=== PATIENT | female | born 1940 | race Caucasian/White ===

== ENCOUNTER → 2020-12-22 | Outpatient (CLI) | payer MEDICARE, BC ==
--- NOTE | 2020-12-22 16:16 | US ---
EXAMINATION TYPE: US carotid duplex BILAT DATE OF EXAM: 12/22/2020 COMPARISON: NONE CLINICAL HISTORY: I70.0 Atherosclerosis of aorta,R55 Syncope. hx stroke. pre op. EXAM MEASUREMENTS: RIGHT: Peak Systolic Velocity (PSV) cm/sec ----- Right CCA: 76.1 ----- Right ICA: 76.1 ----- Right ECA: 66.1 ICA/CCA ratio: 1.0 RIGHT: End Diastole cm/sec ----- Right CCA: 15.6 ----- Right ICA: 14.3 ----- Right ECA: 0 LEFT: Peak Systolic Velocity (PSV) cm/sec ----- Left CCA: 88.4 ----- Left ICA: 105.0 ----- Left ECA: 78.8 ICA/CCA ratio: 1.2 LEFT: End Diastole cm/sec ----- Left CCA: 15.4 ----- Left ICA: 24.5 ----- Left ECA: 2.7 VERTEBRALS (direction of flow): Right Vertebral: Antegrade Left Vertebral: Antegrade Rhythm: Arrhythmia No elevated velocities. No significant stenosis. Small amount of plaque seen in right bulb and pro ximal right CCA. Grayscale, color Doppler, spectral Doppler imaging performed of the carotid arteries. Waveform analys is does not show significant stenosis of the internal carotid arteries. IMPRESSION: No hemodynamic significant stenosis of the proximal internal carotid arteries by Doppler criteria, an indirect measurement of carotid stenosis Criteria for Assigning % of Stenosis / Diameter reduction (Estimation based on the indirect measurements of the internal carotid artery velocities (ICA PSV). 1. Normal (no stenosis)=ICA PSV < 125 cm/s: ratio < 2.0: ICA EDV<40 cm/s. 2. Less than 50% stenosis=ICA PSV < 125 cm/s: ratio < 2.0: ICA EDV<40 cm/s. 3. 50 to 69% stenosis=ICA PSV of 125 to 230 cm/s: ration 2.0 ? 4.0: ICA EDV 40-100 cm/s. 4. Greater than 70% stenosis to near occlusion= ICA PSV > 230 cm/s: ratio > 4.0: ICA EDV > 100 cm/s. 5. Near occlusion= ICA PSV velocities may be low or undetectable: variable ratio and ICA EDV. 6. Total occlusion=unable to detect flow.
--- NOTE | 2020-12-22 18:16 | CT ---
EXAMINATION TYPE: CT chest wo con DATE OF EXAM: 12/22/2020 COMPARISON: None HISTORY: atherosclerosis of aorta CT DLP: 256 mGycm, Automated exposure control for dose reduction was used. CONTRAST: Performed injected with 0 mL of Isovue 300. TECHNIQUE: Axial images were obtained at 5 mm thick sections. Reconstructed images are reviewed on Perk computer in the coronal plane. FINDINGS: Portion of the thyroid visualized is normal. There is a 0.3 cm nodule within the periphery of the left upper lobe. Series 4 image 21. This may be calcified. Monitoring is recommended. Minimal bilateral pleural effusions are present. There are scattered small superior mediastinal lymph nodes. A few scattered present tracheal lymph n odes are evident. There is calcification of the tracheobronchial tree. Calcifications within coronary vessels. The ascending aorta diameter at the level of the main pulmonary artery is 3.1 cm. The main pulmonary artery diameter at the bifurcation is 3.[address] sections are obtained through the upper abdomen. Abdomen is essentially unremarkable. IMPRESSIONS: 1. Minimal bilateral pleural effusions. 2. 0.4 cm nodule periphery left upper lobe. Follow-up exam in 6 months to confirm stability is recomm ended.
== END | disposition home or self-care (01) ==
LOC: RADCTMAIN 11:58
PROVIDERS: ATTEND Thoracic Surgery (Cardiothoracic Vascular Surgery)
DX: J90 Pleural effusion, not elsewhere classified (principal); R91.1 Solitary pulmonary nodule; I70.0 Atherosclerosis of aorta; R55 Syncope and collapse
CPT/HCPCS: 71250; 93880

== ENCOUNTER → 2021-01-02 | Outpatient (CLI) | payer MEDICARE, BC ==
[2021-01-02 10:37] LABS: INR 1.1 (<1.2)
[2021-01-02 10:51] LABS: Amorphous Sediment,Urine Rare /hpf; Appearance,Urine Clear (Clear); Bilirubin,Urine Negative (Negative); Blood,Urine Negative (Negative); Color,Urine Yellow; Glucose,Urine (UA) 4+ (Negative); Hyaline Casts,Urine 4 /lpf (0-2); Ketones,Urine Negative (Negative); Leukocyte Esterase,Urine Moderate (Negative); Mucus,Urine Rare /hpf; Nitrite,Urine Negative (Negative); Protein,Urine Trace (Negative); RBC,Urine 1 /hpf (0-5); Specific Gravity,Urine 1.018 (1.001-1.035); Squamous Epithelial Cell,Urine 1 /hpf (0-4); Urobilinogen,Urine <2.0 mg/dL (<2.0); WBC,Urine 21 /hpf (0-5)
[2021-01-02 10:59] LABS: Anisocytosis Slight; HCT 32.7 % (34.0-46.0); Hypochromasia Marked; MCH 22.8 pg (25.0-35.0); MCHC 30.6 g/dL (31.0-37.0); MCV 74.6 fL (80.0-100.0); Mean Platelet Volume 7.8; Microcytosis Moderate; Platelet Count 370 k/uL (150-450); Poikilocytosis Slight; RBC 4.39 m/uL (3.80-5.40); RDW 18.4 % (11.5-15.5); WBC 10.9 k/uL (3.8-10.6)
[2021-01-02 11:05] LABS: Albumin 4.4 g/dL (3.5-5.0); Calcium 9.4 mg/dL (8.4-10.2); Magnesium 1.1 mg/dL (1.6-2.3); Potassium 4.6 mmol/L (3.5-5.1); Total Bilirubin 0.8 mg/dL (0.2-1.3); Total Protein 6.9 g/dL (6.3-8.2)
[2021-01-02 18:05] LABS: Hepatitis A Antibody IgM Non-Reactive (Non-Reactive); Hepatitis B Core IgM Non-Reactive (Non-Reactive); Hepatitis B Surface Antigen Non-Reactive (Non-Reactive); Hepatitis C IgG Antibody Non-Reactive (Non-Reactive)
--- NOTE | 2021-01-03 08:53 | P.VSCSTY ---
Greater Saphenous Vein Mapping This is bilateral lower extremity greater saphenous vein mapping. Date of service: 01/02/2021 Vein quality and ultrasound appearance: We see no intraluminal thrombus or wall changes. Below mid thigh on the left appears small for use as conduit as well as some areas on the right at the knee and below.. Vein size groin right : 5.0 x 4.1 groin left: 6.1 x 5.5 High thigh right: 3.2 x 2.4 high thigh left: 3.9 x 3.8 Mid thigh right: 3.2 x 2.4 mid thigh left: 2.3 x 3.9 Above-knee right: 3.2 x 3.1 above-knee left: 1.8 x 1.7 Below knee right: 3.0 x 2.0 below-knee left: 2.4 x 1.6 Mid calf right: 2.0 x 2.0 mid calf left: 1.8 x 1.4 Ankle right: 2.5 x 1.7 ankle left: 1.8 x 1.2 Impression: Areas of usable saphenous vein. Most of right leg as well as mid thigh and above on the left.
--- NOTE | 2021-01-03 08:54 | P.ARTDOP ---
Arterial Doppler LOWER EXTREMITY ARTERIAL DOPPLER: DATE OF SERVICE: 01/02/2021 Reason for study: Preop CABG. Doppler waveforms: Multiphasic bilaterally throughout. Pulse volume recording: []. Pressure gradients: None. Ankle-brachial indices: Greater than 1 bilaterally. Toe brachial indices: Greater than 1 bilaterally Impression: Normal study.
== END | disposition home or self-care (01) ==
LOC: LABPAT 08:39
PROVIDERS: ATTEND Thoracic Surgery (Cardiothoracic Vascular Surgery)
DX: Z01.810 Encounter for preprocedural cardiovascular examination (principal); I34.2 Nonrheumatic mitral (valve) stenosis; I36.1 Nonrheumatic tricuspid (valve) insufficiency; I25.10 Atherosclerotic heart disease of native coronary artery without angina pectoris; E11.9 Type 2 diabetes mellitus without complications; Z79.01 Long term (current) use of anticoagulants; Z79.899 Other long term (current) drug therapy
CPT/HCPCS: 36415; 80053; 80061; 80074; 81001; 83036; 83735; 84443; 85027; 85610; 85730; 86850; 86900; 86901; 86920; 87070; 87086; 93005; 93922; 93970

== ENCOUNTER → 2021-01-08 | Outpatient (CLI) | payer MEDICARE, BC ==
[2021-01-02 11:03] VITALS: BMI 20.5
[~2021-01-08] MED LIST: ALBUMIN HUMAN 25% 50 ML IV ONE; ALBUMIN HUMAN 5% 500 ML IVPB ONE; ASPIRIN 325 MG TAB PO ONE; ATORVASTATIN 10 MG TAB PO ONE; CALCIUM CHLORIDE 100 MG/ML 10 ML SYRINGE IV ONE; CHLORHEXIDINE GLUCONATE 15 ML CUP MUCOUS MEM ONE; CLEVIDIPINE BUTYRATE 25 MG in EMPTY BAG 1 BAG IV ONE; DEXTROSE 5% IN WATER 1,000 ML with POTASSIUM CHLORIDE 110 MEQ, MAGNESIUM SULFATE 16 MEQ... IV ONE; DEXTROSE 5% IN WATER 1,000 ML with POTASSIUM CHLORIDE 25 MEQ, SODIUM CHLORIDE 4MEQ/ML V... IRRIGATION ONE; HEPARIN SODIUM 1,000 UN/ML (10ML VL) IV ONE; HEPARIN SODIUM,PORCINE 5,000 UNIT in SODIUM CHLORIDE 0.9% 500 ML 500 ML IV ONE; INSULIN ASPART (NovoLOG) 100 UNIT/ML VIAL SQ ONE; INSULIN REGULAR 100 UNIT in SODIUM CHLORIDE 0.9% 100 ML IV ONE; LACTATED RINGERS 1,000 ML IV ONE; LACTATED RINGERS 1,000 ML IV SCH; LIDOCAINE 1% (10MG/ML) FOR IV START INTRADERMA PRN; MAGNESIUM SULFATE MG 500 MG/ML IV ONE; MAGNESIUM SULFATE-D5W PMX 1 GM in DEXTROSE/WATER 1 100ML.BAG IVPB SCH; MANNITOL 25% 12.5 GM/50 ML VIAL IV ONE; METOPROLOL TARTRATE 12.5 MG TAB PO ONE; MUPIROCIN 2% OINT 22 GM TUBE NASAL ONE; NITROGLYCERIN SL TABS 0.4 MG TAB SUBLINGUAL ONE; NITROGLYCERIN-D5W PMX 25 MG/250 ML BTL IV ONE; NITROGLYCERIN-D5W PMX 50 MG in DEXTROSE/WATER 1 250ML.BAG IV ONE; NOREPINEPHRINE 4 MG in SODIUM CHLORIDE 0.9% 250 ML IV ONE; PAPAVERINE 360 MG in SODIUM CHLORIDE 0.9% 90 ML IV ONE; PHENYLEPHRINE 10 MG/ML VIAL IV ONE; PHENYLEPHRINE 40 MG in SODIUM CHLORIDE 0.9% 250 ML IV ONE; PROTAMINE SULFATE 10 MG/ML 25 ML VIAL IV ONE; PROTAMINE SULFATE 250 MG in EMPTY BAG 1 BAG IV ONE; SODIUM BICARB 8.4% 50 ML SYR (1 MEQ/ML) IV ONE; SODIUM CHLORIDE 0.9% 1,000 ML IV ONE; TRANEXAMIC ACID 2,000 MG in SODIUM CHLORIDE 0.9% 80 ML IV ONE; ceFAZolin 1,000 MG in SODIUM CHLORIDE 0.9% IRRIGATIO 1,000 ML IRRIGATION ONE; propofoL 1,000 MG/100 ML VIAL IV ONE
[2021-01-08 06:26] VITALS: BP 141/76; PULSE 83; RESP 16; TEMP 97.6
[2021-01-08 06:51] LABS: Glucose,Whole Blood 203 mg/dL (75-99)
[2021-01-08 07:20] LABS: Anisocytosis Slight; HCT 30.5 % (34.0-46.0); HGB 9.9 gm/dL (11.4-16.0); Hypochromasia Marked; MCH 23.1 pg (25.0-35.0); MCHC 32.4 g/dL (31.0-37.0); MCV 71.3 fL (80.0-100.0); Mean Platelet Volume 8.1; Microcytosis Marked; Platelet Count 307 k/uL (150-450); Poikilocytosis Slight; RBC 4.28 m/uL (3.80-5.40); RDW 18.4 % (11.5-15.5); WBC 9.7 k/uL (3.8-10.6)
[2021-01-08 07:33] LABS: Albumin 4.1 g/dL (3.5-5.0); Calcium 9.5 mg/dL (8.4-10.2); Magnesium 1.5 mg/dL (1.6-2.3); Potassium 4.3 mmol/L (3.5-5.1); Total Bilirubin 0.6 mg/dL (0.2-1.3); Total Protein 6.7 g/dL (6.3-8.2)
== END | disposition home or self-care (01) ==
LOC: 2ORMAIN 05:37 → OR 05:37 → UNDOADMIN 05:37 → EDSTATUS 08:00
PROVIDERS: ATTEND Thoracic Surgery (Cardiothoracic Vascular Surgery)
DX: I34.2 Nonrheumatic mitral (valve) stenosis (principal); I36.1 Nonrheumatic tricuspid (valve) insufficiency; I25.10 Atherosclerotic heart disease of native coronary artery without angina pectoris; Z53.09 Procedure and treatment not carried out because of other contraindication
CPT/HCPCS: 80053; 83735; 85027; 86850; 86900; 86901; 86920

== ENCOUNTER → 2021-01-22 | Outpatient (CLI) | payer MEDICARE, BC ==
[2021-01-22 09:45] LABS: Anisocytosis Slight; HCT 37.6 % (34.0-46.0); HGB 11.8 gm/dL (11.4-16.0); Hypochromasia Marked; MCH 24.2 pg (25.0-35.0); MCHC 31.4 g/dL (31.0-37.0); Mean Platelet Volume 7.1; Microcytosis Moderate; Platelet Count 298 k/uL (150-450); Poikilocytosis Slight; RBC 4.89 m/uL (3.80-5.40); RDW 19.8 % (11.5-15.5); WBC 9.5 k/uL (3.8-10.6)
[2021-01-22 09:56] LABS: Albumin 4.1 g/dL (3.5-5.0); Calcium 9.9 mg/dL (8.4-10.2); Magnesium 1.3 mg/dL (1.6-2.3); Potassium 4.8 mmol/L (3.5-5.1); Total Bilirubin 0.7 mg/dL (0.2-1.3); Total Protein 6.7 g/dL (6.3-8.2)
[2021-01-22 09:57] LABS: INR 1.1 (<1.2); Partial Thromboplastin Time 22.3 sec (22.0-30.0); Prothrombin Time 11.2 sec (9.0-12.0)
== END | disposition home or self-care (01) ==
LOC: LABWHC1 09:07
PROVIDERS: ATTEND Thoracic Surgery (Cardiothoracic Vascular Surgery)
DX: I25.10 Atherosclerotic heart disease of native coronary artery without angina pectoris (principal); I34.0 Nonrheumatic mitral (valve) insufficiency; R55 Syncope and collapse
CPT/HCPCS: 80053; 83735; 85027; 85610; 85730

== ENCOUNTER 2021-01-24 06:10 | Inpatient (IN) | payer MEDICARE, BC ==
[2021-01-19 12:58] VITALS: BMI 21.0
[~2021-01-24 06:10] MED LIST changes: -INSULIN ASPART (NovoLOG) 100 UNIT/ML VIAL SQ ONE; -LACTATED RINGERS 1,000 ML IV SCH; -LIDOCAINE 1% (10MG/ML) FOR IV START INTRADERMA PRN; -MAGNESIUM SULFATE-D5W PMX 1 GM in DEXTROSE/WATER 1 100ML.BAG IVPB SCH; -MUPIROCIN 2% OINT 22 GM TUBE NASAL ONE
[2021-01-24 06:40] LABS: Glucose,Whole Blood 147 mg/dL (75-99)
[2021-01-24 07:01] VITALS: BP 163/79; TEMP 99
[2021-01-24] MEDS ORDERED: LIDOCAINE 1% (10MG/ML) FOR IV START INTRADERMA ONE (07:03)
[2021-01-24 07:11] LABS: Magnesium 1.5 mg/dL (1.6-2.3)
[2021-01-24] MEDS ORDERED: MAGNESIUM SULFATE-D5W PMX 1 GM in DEXTROSE/WATER 1 100ML.BAG IVPB SCH (08:00)
[2021-01-24] MEDS ORDERED: TRANEXAMIC ACID 1,000 MG/10 ML VIAL ONE (08:52)
[2021-01-24] MEDS ORDERED: ELECTROLYTE-R (PH 7.4) 1,000 ML IV.SOLN IV ONE (08:52)
[2021-01-24] MEDS ORDERED: fentaNYL (PF) 50 MCG/ML 50 ML VIAL ONE (08:52)
[2021-01-24] MEDS ORDERED: INSULIN REGULAR 100 UNIT/ML VIAL ONE (08:52)
[2021-01-24] MEDS ORDERED: CALCIUM CHLORIDE 100 MG/ML 10 ML SYRINGE ONE (08:52)
[2021-01-24] MEDS ORDERED: SODIUM CHLORIDE 0.9% IRRIG 1,000 ML BTL IRRIGATION ONE (08:52)
[2021-01-24] MEDS ORDERED: MAGNESIUM SULFATE 4 MEQ/ML 10ML VIAL ONE (08:52)
[2021-01-24] MEDS ORDERED: SODIUM BICARB 8.4% 50 ML SYR (1 MEQ/ML) ONE (08:52)
[2021-01-24] MEDS ORDERED: PROTAMINE SULFATE 10 MG/ML 25 ML VIAL IV ONE (08:52)
[2021-01-24] MEDS ORDERED: SODIUM CHLORIDE 0.9% 250 ML BAG ONE (08:52)
[2021-01-24] MEDS ORDERED: LIDOCAINE 2% SYG (PF) 100 MG/5 ML ONE (08:52)
[2021-01-24] MEDS ORDERED: MIDAZOLAM 2 MG/2 ML VIAL ONE (08:52)
[2021-01-24] MEDS ORDERED: VECURONIUM 10 MG VIAL IV ONE (08:52)
[2021-01-24] MEDS ORDERED: PROPOFOL 10 MG/ML 20 ML VIAL IV ONE (08:52)
[2021-01-24] MEDS ORDERED: fentaNYL (PF) 50 MCG/ML 2 ML AMP ONE (08:52)
[2021-01-24 09:27] LABS: ABG Base Excess -0.2 mmol/L; ABG Glucose Whole Blood 242 mg/dL (75-99); ABG HCO3 25 mmol/L (21-25); ABG Hematocrit 31 % (34.0-46.0); ABG Ionized Calcium 4.7 mg/dL (4.5-5.3); ABG PCO2 41 mmHg (35-45); ABG PH 7.39 (7.35-7.45); ABG PO2 322 mmHg (83-108); ABG Sodium Whole Blood 137 mmol/L (135-146); ABG TCO2 26 mmol/L (19-24)
[2021-01-24 09:42] LABS: Digoxin 0.7 ng/mL
[2021-01-24 10:06] LABS: ABG Base Excess -1.4 mmol/L; ABG Glucose Whole Blood 198 mg/dL (75-99); ABG HCO3 26 mmol/L (21-25); ABG Hematocrit 31 % (34.0-46.0); ABG Ionized Calcium 4.8 mg/dL (4.5-5.3); ABG Lactic Acid Whole Blood 1.7 mmol/L (0.5-1.6); ABG PCO2 57 mmHg (35-45); ABG PH 7.27 (7.35-7.45); ABG Potassium Whole Blood 3.2 mmol/L (3.4-4.5); ABG Sodium Whole Blood 139 mmol/L (135-146); ABG TCO2 28 mmol/L (19-24)
[2021-01-24 10:12] LABS: ABG Base Excess -1.6 mmol/L; ABG Glucose Whole Blood 193 mg/dL (75-99); ABG HCO3 26 mmol/L (21-25); ABG Hematocrit 32 % (34.0-46.0); ABG Ionized Calcium 4.8 mg/dL (4.5-5.3); ABG Lactic Acid Whole Blood 1.7 mmol/L (0.5-1.6); ABG PCO2 54 mmHg (35-45); ABG PH 7.29 (7.35-7.45); ABG Potassium Whole Blood 3.3 mmol/L (3.4-4.5); ABG Sodium Whole Blood 139 mmol/L (135-146); ABG TCO2 27 mmol/L (19-24)
[2021-01-24 10:59] LABS: ABG Base Excess 0.1 mmol/L; ABG Glucose Whole Blood 158 mg/dL (75-99); ABG HCO3 24 mmol/L (21-25); ABG Hematocrit 28 % (34.0-46.0); ABG Ionized Calcium 4.5 mg/dL (4.5-5.3); ABG PCO2 35 mmHg (35-45); ABG PH 7.44 (7.35-7.45); ABG Potassium Whole Blood 3.7 mmol/L (3.4-4.5); ABG Sodium Whole Blood 137 mmol/L (135-146); ABG TCO2 25 mmol/L (19-24)
[2021-01-24 11:22] LABS: ABG Base Excess -1.1 mmol/L; ABG Glucose Whole Blood 184 mg/dL (75-99); ABG HCO3 23 mmol/L (21-25); ABG Ionized Calcium 3.9 mg/dL (4.5-5.3); ABG PCO2 33 mmHg (35-45); ABG PH 7.45 (7.35-7.45); ABG Potassium Whole Blood 4.1 mmol/L (3.4-4.5); ABG Sodium Whole Blood 132 mmol/L (135-146); ABG TCO2 24 mmol/L (19-24)
[2021-01-24 12:06] LABS: ABG Base Excess -0.8 mmol/L; ABG Glucose Whole Blood 195 mg/dL (75-99); ABG HCO3 25 mmol/L (21-25); ABG Ionized Calcium 4.3 mg/dL (4.5-5.3); ABG PCO2 45 mmHg (35-45); ABG PH 7.35 (7.35-7.45); ABG PO2 412 mmHg (83-108); ABG Potassium Whole Blood 4.7 mmol/L (3.4-4.5); ABG Sodium Whole Blood 135 mmol/L (135-146); ABG TCO2 26 mmol/L (19-24)
[2021-01-24 12:40] LABS: ABG Base Excess -0.4 mmol/L; ABG Glucose Whole Blood 199 mg/dL (75-99); ABG HCO3 25 mmol/L (21-25); ABG Ionized Calcium 4.3 mg/dL (4.5-5.3); ABG PCO2 41 mmHg (35-45); ABG PH 7.38 (7.35-7.45); ABG PO2 408 mmHg (83-108); ABG Potassium Whole Blood 4.6 mmol/L (3.4-4.5); ABG Sodium Whole Blood 135 mmol/L (135-146); ABG TCO2 26 mmol/L (19-24)
[2021-01-24 13:04] LABS: ABG Base Excess -0.9 mmol/L; ABG Glucose Whole Blood 211 mg/dL (75-99); ABG HCO3 24 mmol/L (21-25); ABG Ionized Calcium 4.3 mg/dL (4.5-5.3); ABG PCO2 38 mmHg (35-45); ABG PH 7.41 (7.35-7.45); ABG PO2 401 mmHg (83-108); ABG Potassium Whole Blood 4.8 mmol/L (3.4-4.5); ABG Sodium Whole Blood 135 mmol/L (135-146); ABG TCO2 25 mmol/L (19-24)
[2021-01-24 13:51] LABS: ABG Base Excess -1.7 mmol/L; ABG Glucose Whole Blood 261 mg/dL (75-99); ABG HCO3 24 mmol/L (21-25); ABG Ionized Calcium 4.2 mg/dL (4.5-5.3); ABG PCO2 42 mmHg (35-45); ABG PH 7.36 (7.35-7.45); ABG Sodium Whole Blood 134 mmol/L (135-146); ABG TCO2 25 mmol/L (19-24)
[2021-01-24] MEDS ORDERED: EPINEPHrine 4 MG in DEXTROSE 5% IN WATER 250 ML IV STA ×2 (13:57)
[2021-01-24 14:28] LABS: ABG Base Excess -4.1 mmol/L; ABG Glucose Whole Blood 257 mg/dL (75-99); ABG HCO3 22 mmol/L (21-25); ABG Ionized Calcium 4.2 mg/dL (4.5-5.3); ABG PCO2 42 mmHg (35-45); ABG PH 7.32 (7.35-7.45); ABG PO2 379 mmHg (83-108); ABG Potassium Whole Blood 4.5 mmol/L (3.4-4.5); ABG Sodium Whole Blood 136 mmol/L (135-146); ABG TCO2 23 mmol/L (19-24)
[2021-01-24 15:01] LABS: ABG PO2 >420 mmHg (83-108)
[2021-01-24 15:01] LABS: ABG Lactic Acid Whole Blood 2.2 mmol/L (0.5-1.6)
[2021-01-24 15:01] LABS: ABG Base Excess -1.3 mmol/L; ABG Glucose Whole Blood 248 mg/dL (75-99); ABG HCO3 24 mmol/L (21-25); ABG Ionized Calcium 4.1 mg/dL (4.5-5.3); ABG PCO2 45 mmHg (35-45); ABG PH 7.35 (7.35-7.45); ABG PO2 381 mmHg (83-108); ABG Potassium Whole Blood 4.2 mmol/L (3.4-4.5); ABG Sodium Whole Blood 138 mmol/L (135-146); ABG TCO2 26 mmol/L (19-24)
[2021-01-24 15:02] LABS: ABG PO2 >420 mmHg (83-108)
[2021-01-24 15:03] LABS: ABG Lactic Acid Whole Blood 3.1 mmol/L (0.5-1.6); ABG PO2 >420 mmHg (83-108)
[2021-01-24 15:04] LABS: ABG Hematocrit 20 % (34.0-46.0); ABG Lactic Acid Whole Blood 2.7 mmol/L (0.5-1.6); ABG PO2 >420 mmHg (83-108)
[2021-01-24 15:05] LABS: ABG Hematocrit 21 % (34.0-46.0)
[2021-01-24 15:06] LABS: ABG Hematocrit 22 % (34.0-46.0); ABG Lactic Acid Whole Blood 2.8 mmol/L (0.5-1.6)
[2021-01-24 15:07] LABS: ABG Hematocrit 22 % (34.0-46.0); ABG Lactic Acid Whole Blood 3.3 mmol/L (0.5-1.6)
[2021-01-24 15:07] LABS: ABG PO2 >420 mmHg (83-108)
[2021-01-24 15:08] LABS: ABG Hematocrit 20 % (34.0-46.0); ABG Lactic Acid Whole Blood 3.1 mmol/L (0.5-1.6)
[2021-01-24 15:09] LABS: ABG Hematocrit 23 % (34.0-46.0); ABG Lactic Acid Whole Blood 3.3 mmol/L (0.5-1.6)
[2021-01-24 15:10] LABS: ABG Hematocrit 23 % (34.0-46.0); ABG Lactic Acid Whole Blood 3.4 mmol/L (0.5-1.6)
[2021-01-24 15:36] LABS: ABG Base Excess -4.4 mmol/L; ABG Glucose Whole Blood 217 mg/dL (75-99); ABG HCO3 20 mmol/L (21-25); ABG Hematocrit 26 % (34.0-46.0); ABG Ionized Calcium 3.9 mg/dL (4.5-5.3); ABG PCO2 35 mmHg (35-45); ABG PH 7.38 (7.35-7.45); ABG Potassium Whole Blood 3.8 mmol/L (3.4-4.5); ABG Sodium Whole Blood 138 mmol/L (135-146); ABG TCO2 21 mmol/L (19-24)
[2021-01-24 16:12] LABS: ABG Base Excess -3.7 mmol/L; ABG Glucose Whole Blood 187 mg/dL (75-99); ABG HCO3 22 mmol/L (21-25); ABG Hematocrit 26 % (34.0-46.0); ABG Ionized Calcium 4.5 mg/dL (4.5-5.3); ABG PCO2 40 mmHg (35-45); ABG PH 7.35 (7.35-7.45); ABG Potassium Whole Blood 3.9 mmol/L (3.4-4.5); ABG Sodium Whole Blood 140 mmol/L (135-146); ABG TCO2 23 mmol/L (19-24)
[2021-01-24 16:32] LABS: ABG Base Excess -3.2 mmol/L; ABG Glucose Whole Blood 208 mg/dL (75-99); ABG HCO3 22 mmol/L (21-25); ABG Ionized Calcium 4.2 mg/dL (4.5-5.3); ABG PCO2 42 mmHg (35-45); ABG PH 7.33 (7.35-7.45); ABG Potassium Whole Blood 3.6 mmol/L (3.4-4.5); ABG Sodium Whole Blood 143 mmol/L (135-146); ABG TCO2 24 mmol/L (19-24)
[2021-01-24] MEDS ORDERED: DEXTROSE 5% IN WATER 1,000 ML with SODIUM BICARB (1 MEQ/ML) 150 ML IV ONE (17:45)
[2021-01-24 18:08] LABS: Glucose,Whole Blood 407 mg/dL (75-99); Glucose,Whole Blood 421 mg/dL (75-99)
[2021-01-24 18:17] LABS: ABG Base Excess -3.6 mmol/L; ABG HCO3 25 mmol/L (21-25); ABG Oxygen Saturation 83.3 % (94-97); ABG PCO2 66 mmHg (35-45); ABG TCO2 27 mmol/L (19-24); Allen Test Performed? Yes
[2021-01-24] MEDS ORDERED: CALCIUM GLUCONATE 2 GM in SODIUM CHLORIDE 0.9% 100 ML IVPB PRN (18:26)
[2021-01-24] MEDS ORDERED: LACTATED RINGERS 1,000 ML IV SCH (18:26)
[2021-01-24] MEDS ORDERED: ALBUMIN HUMAN 5% 250 ML in EMPTY BAG 1 BAG IVPB PRN (18:26)
[2021-01-24] MEDS ORDERED: Phosphorus Replacement Protoco 1 EACH MISC MISCELLANE PRN (18:26)
[2021-01-24] MEDS ORDERED: Potassium Replacement Protocol 1 EACH MISC MISCELLANE PRN (18:26)
[2021-01-24] MEDS ORDERED: MORPHINE SULFATE 2 MG/ML SYRINGE IVP PRN (18:26)
[2021-01-24] MEDS ORDERED: IPRATROPIUM-ALBUTEROL 3 ML NEB INHALATION PRN (18:26)
[2021-01-24] MEDS ORDERED: Magnesium Replacement Protocol 1 EACH MISC MISCELLANE PRN (18:26)
[2021-01-24] MEDS ORDERED: ACETAMINOPHEN IV (For NPO) 1,000 MG in EMPTY BAG 1 BAG IVPB SCH (18:26)
[2021-01-24 18:34] LABS: ABG PH 7.18 (7.35-7.45); ABG PO2 57 mmHg (83-108)
[2021-01-24 18:40] LABS: ABG Lactic Acid Whole Blood 5.7 mmol/L (0.5-1.6); ABG PO2 >420 mmHg (83-108)
[2021-01-24 18:41] LABS: ABG PO2 >420 mmHg (83-108)
[2021-01-24 18:42] LABS: ABG Lactic Acid Whole Blood 7.5 mmol/L (0.5-1.6); ABG PO2 >420 mmHg (83-108)
[2021-01-24 18:43] LABS: ABG Hematocrit 24 % (34.0-46.0)
[2021-01-24 18:45] LABS: ABG Base Excess -15.1 mmol/L; ABG Glucose Whole Blood 366 mg/dL (75-99); ABG HCO3 15 mmol/L (21-25); ABG Hematocrit 25 % (34.0-46.0); ABG Oxygen Saturation 94.1 % (94-97); ABG PCO2 53 mmHg (35-45); ABG PO2 91 mmHg (83-108); ABG Potassium Whole Blood 3.5 mmol/L (3.4-4.5); ABG Sodium Whole Blood 148 mmol/L (135-146); ABG TCO2 16 mmol/L (19-24)
[2021-01-24 18:45] LABS: ABG Base Excess 0.2 mmol/L; ABG Glucose Whole Blood 263 mg/dL (75-99); ABG HCO3 26 mmol/L (21-25); ABG PCO2 51 mmHg (35-45); ABG PH 7.32 (7.35-7.45); ABG PO2 281 mmHg (83-108); ABG Potassium Whole Blood 3.8 mmol/L (3.4-4.5); ABG Sodium Whole Blood 155 mmol/L (135-146); ABG TCO2 28 mmol/L (19-24)
[2021-01-24 18:46] LABS: ABG Hematocrit 20 % (34.0-46.0); ABG Ionized Calcium 2.6 mg/dL (4.5-5.3); ABG Lactic Acid Whole Blood 10.8 mmol/L (0.5-1.6)
[2021-01-24 18:47] LABS: ABG Ionized Calcium 2.4 mg/dL (4.5-5.3); ABG Lactic Acid Whole Blood 13.5 mmol/L (0.5-1.6); ABG PH 7.05 (7.35-7.45)
[2021-01-24 18:56] LABS: Glucose,Whole Blood 430 mg/dL (75-99)
[2021-01-24 19:18] LABS: Anisocytosis Slight; HCT 28.2 % (34.0-46.0); Hypochromasia Marked; MCH 28.1 pg (25.0-35.0); MCHC 32.3 g/dL (31.0-37.0); Mean Platelet Volume 9.4; Poikilocytosis Slight; RBC 3.24 m/uL (3.80-5.40); RDW 18.9 % (11.5-15.5)
[2021-01-24 19:20] LABS: HGB 9.1 gm/dL (11.4-16.0)
[2021-01-24 19:21] LABS: MCV 87.1 fL (80.0-100.0); Platelet Count 130 k/uL (150-450)
[2021-01-24 19:25] LABS: Ionized Calcium 3.2 mg/dL (4.5-5.3)
[2021-01-24 19:27] LABS: Prothrombin Time 19.3 sec (9.0-12.0)
[2021-01-24 19:29] LABS: Band Neutrophils % 14 %; Eosinophils # (M) 0.22 k/uL (0-0.7); Lymphocytes # (M) 4.29 k/uL (1.0-4.8); Metamyelocytes # (M) 0.22 k/uL (0); Metamyelocytes % 2 %; Monocytes # (M) 0.22 k/uL (0-1.0); Neutrophils % (M) 41 %; Nucleated Red Blood Cells 0 /100 WBC (0-0); Reactive Lymphocytes Present; Total Cells Counted 100; Toxic Granulation Present
[2021-01-24 19:30] LABS: Partial Thromboplastin Time 109.7 sec (22.0-30.0)
[2021-01-24 19:46] LABS: Albumin 1.6 g/dL (3.5-5.0); Calcium 5.7 mg/dL (8.4-10.2); Magnesium 3.5 mg/dL (1.6-2.3); Potassium 3.2 mmol/L (3.5-5.1); Total Protein 2.8 g/dL (6.3-8.2)
[2021-01-24 19:48] VITALS: PULSE 80; RESP 30
[2021-01-24] MEDS ORDERED: IPRATROPIUM-ALBUTEROL 3 ML NEB INHALATION SCH (20:00)
[2021-01-25] MEDS ORDERED: HEPARIN SODIUM,PORCINE/PF 5,000 UNIT/0.5 ML SYRINGE SQ SCH
[2021-01-25] MEDS ORDERED: IPRATROPIUM-ALBUTEROL 3 ML NEB INHALATION SCH (08:00)
[2021-01-25] MEDS ORDERED: METOPROLOL TARTRATE 12.5 MG TAB PO SCH (09:00)
[2021-01-25] MEDS ORDERED: bisacodyL 10 MG SUPP RECTAL PRN (09:00)
[2021-01-25] MEDS ORDERED: ATORVASTATIN 40 MG TAB PO SCH (09:00)
[2021-01-25] MEDS ORDERED: MAGNESIUM HYDROXIDE 2,400 MG/10 ML CUP PO PRN (09:00)
[2021-01-25] MEDS ORDERED: CLOPIDOGREL 75 MG TAB PO SCH (09:00)
[2021-01-25] MEDS ORDERED: PANTOPRAZOLE 40 MG/10 ML VIAL IVP SCH (09:00)
[2021-01-25] MEDS ORDERED: ASPIRIN 325 MG TAB PO SCH (09:00)
[2021-01-25] MEDS ORDERED: SENNOSIDES-DOCUSATE SODIUM 1 EACH TAB PO SCH (21:00)
--- NOTE | 2021-02-15 22:57 | OP ---
OPERATIVE REPORT DATE OF OPERATION: 01/24/2021 ASSISTANTS: 1. INA Antunez. 2. Belgica Riggins. PREOPERATIVE DIAGNOSIS: Mitral stenosis and mitral regurgitation. POSTOPERATIVE DIAGNOSIS: Mitral stenosis and mitral regurgitation. PROCEDURE: 1. Mitral valve replacement with a 29 mm Vega bioprosthetic mitral valve. 2. Coronary artery bypass grafting x1 with reverse saphenous vein graft off the aorta to the left anterior descending artery with right lower extremity greater saphenous vein endoscopic vein harvesting,. 3. Clip ligation of the left atrial appendage with a 35 mm AtriClip followed by repair of AV groove disruption. 4. Explant of Damir's bioprosthetic mitral valve. 5. Mitral valve re-replacement with a 29 mm Medtronic Mosaic bioprosthetic mitral valve. 6. Placement of a left femoral intraaortic balloon pump. 7. Intraoperative transesophageal echocardiogram. ANESTHESIA: General. BLOOD LOSS: About 500 mL. SUMMARY: Patient was brought to the operating room, placed in supine position. Following administration of a general endotracheal anesthetic, placement of a Little Silver-Heladio catheter and arterial line, adequate IV access and a Vernon catheter, the patient was carefully prepped and draped in normal sterile fashion using chlorhexidine paint and sterile towels. Greater saphenous vein was harvested from the right lower extremity with endovascular vein-harvesting technique. All branches were doubly tied and divided and the incisions closed in 2 layers. Midline incision in the chest was made, sternum divided. Pericardium was opened. Heart size was mildly enlarged. The aorta was soft. The patient was heparinized to an ACT of greater than 480. The aorta and two single- stage venous cannulas were placed. Antegrade and retrograde cardioplegic catheters were positioned. The patient was placed on bypass, cross-clamp placed, heart arrested with one liter of antegrade followed by 500 mL retrograde cardioplegia. Retrograde cardioplegia was delivered, 300 to 500 mL at the end of each 20-minute interval. First the base of the left atrial appendage was measured. A 35 mm AtriClip was secured at the base, officially obliterating the left atrial appendage. A single distal anastomosis was constructed between the reverse saphenous vein graft and the proximal mid left anterior descending artery using a 7-0 Prolene running suture. Caliber of this vessel was 1.75 mm. A single proximal anastomosis was constructed on the ascending aorta using 6-0 Prolene running suture. Next the left atrium was entered at the junction of the right superior pulmonary vein. A handheld retractor was placed. Mitral valve was identified. It was very heavily calcified and a rheumatic mitral stenosis type valve. The valve was carefully excised, and due to the thickening and foreshortening of all the chordae, the chordae were excised down to the papillary muscle heads. Once the valve was excised it was sent to Pathology. It sized to a 29 mm Vega bioprosthetic mitral valve. The valve was brought into the field and prepared in the usual fashion as 2-0 Tycron pledgeted sutures were placed circumferentially, atrially based. These were then passed through the sewing cuff of the valve, which was then seated. As it was being seated, the valve was not locked in position and therefore it was then locked as it was placed into the mitral anulus. Once in the mitral anulus, all sutures were secured, tied and cut using the Tag'Byot ligature system device. At this point the atrium was then irrigated out and closed using a 4-0 Prolene pledgeted suture, vertical mattress followed by an [id number] stitch from both sites. At this point, complete de-airing maneuvers were performed 3 times, cross-clamp was then removed, and patient was then brought off bypass. She came off bypass uneventfully with excellent hemodynamics. At this point, PETER, however, showed that one of the leaflets was not closing to the midline appropriately and there was significant central mitral regurgitation. Being unable to fully diagnose it on PETER, including having ferryboat operator Dr. Gill come and look at the PETER, the patient was then placed back on bypass. The cross-clamp was placed. The heart was re-arrested and the left atrium was opened. All sutures were cut and the valve was then removed. The left atrium and ventricle were irrigated out copiously with cold saline. There was definitely an indentation on one of the leaflets of the bioprosthetic valve on the undersurface. At this point, due to the very fragile nature of her anulus and annular type tissues, a piece of pericardium was placed and then 2-0 Tycron pledgeted sutures were once again placed circumferentially and a 29 mm Medtronic Mosaic bioprosthetic aortic valve was brought into the field and prepared in the usual fashion. This was a sensed device and the posts were cinched to the midline. All sutures were passed through the sewing cuff of the valve, which was then seated and seated well, and all sutures were then tied, secured and cut using the CorPositron Dynamicsot ligature system device. The atrium was then closed again using the same double-layered pledgeted 4-0 Prolene vertical mattress followed by an [id number] stitch on both sides. The patient was placed head down. Complete de- airing maneuvers were performed 3 times. At this point, the cross-clamp was re- removed. The patient was then re-perfused for a period of time and there was noted to be some bright red blood coming from the posterior aspect of the heart. Using large pieces of felt strips and a 3-0 Prolene on a very large needle, large bites in the area of the AV groove were taken along with using TachoSil patches, the bleeding stopped. The patient came off bypass; however, at this point she was very acidotic and required pressor therapy. An intra-aortic balloon pump was placed via the left femoral artery to help with counterpulsation. Protamine was delivered, patient decannulated. Atrial and ventricular pacing wires were placed. Mediastinal and left pleural chest tubes were placed. At this point the sternum was closed with six #6 sternal wires. Skin, subcutaneous tissue and fascia were closed in 3 layers. The valve on PETER was functioning normally and well. However, the left ventricular function was decreased. The patient remained quite unstable and was transported to the intensive care unit in critical but stable condition on multiple pressors, intra-aortic balloon pump and Primacor. MMODL / IJN: [id number] / [facility]
--- NOTE | 2021-02-16 09:53 | P.DS ---
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 Mitral valve stenosis and mitral regurgitation with previous balloon valvuloplasty in 1996 2. Coronary artery disease with previous myocardial infarction and PCI to the LAD in 2003 3. Hypertension 4. Hyperlipidemia 5. Insulin-dependent diabetes with preoperative hemoglobin A1c 8% 6. Chronic atrial fibrillation on Eliquis for anticoagulation, last dose 01/18/2021 7. Previous CVA in February 2020 8. Chronic anemia 9. Previous tobacco dependence 10. Mild COPD with preoperative FEV1 73% of predicted 11. Family history of premature coronary artery disease on both parents side PRINCIPAL PROCEDURE: 1. Mitral valve replacement with 29 mm Vega bioprosthetic mitral valve 2. Coronary artery bypass grafting 1 with reverse saphenous vein graft off the aorta to the left anterior descending artery with right lower extremity greater saphenous vein endoscopic vein harvesting 3. Clip ligation of the left atrial appendage with a 35 mm AtriClip followed by repair of AV groove disruption 4. Explant of Vega bioprosthetic mitral valve 5. Mitral valve re-replacement with a 29 mm Medtronic Mosaic bioprosthetic mitral valve 6. Placement of a left femoral intra-aortic balloon pump 7. Intraoperative transesophageal echocardiogram HISTORY OF PRESENT ILLNESS: This was a 80-year-old female who followed on an outpatient basis with Dr. Sorenson for primary care and Dr. JG Webber for cardiology. She had been experiencing increasing shortness of breath and was recommended to undergo heart catheterization and transesophageal echocardiogram. Catheterization revealed greater than 70% stenosis to the left anterior descending coronary artery. Echocardiogram revealed moderate to severe mitral stenosis with calcification of the mitral valve. The patient was referred to Dr. Gerber from cardiothoracic surgery. She was recommended to undergo single vessel CABG along with mitral valve replacement. The usual perioperative course was discussed in detail with the patient and her family, all risks and benefits were explained, all questions were answered, and consent was obtained to proceed with surgery. The patient was kept on maximal medical therapy to return as an outpatient for surgery after obtaining dental clearance. HOSPITAL COURSE: The patient was brought to the hospital on 01/24/2021, taken to the preoperative area, prepared in the usual fashion, and subsequently taken to the operating room where Dr. Gerber performed single vessel CABG and mitral valve replacement. The patient had a yancy operative course as noted in the operative report with re-replacement of the mitral valve and placement of intra-aortic balloon pump. Upon completion of surgery the patient was transferred to the cardiovascular intensive care unit where she continued to deteriorate despite all of our best efforts. Family was at the bedside and updated continuously, agreed to make the patient comfort care. Unfortunately the patient was unable to survive and she in the intensive care unit the night of surgery. Plan - Discharge Summary Discharge Rx Participant: No New Discharge Prescriptions: No Action Repaglinide [Prandin] 2 mg PO AC-BID Cyanocobalamin [Vitamin B-12] 500 mcg PO DAILY ALPRAZolam [Xanax] 0.5 tab PO Q8HR PRN PRN Reason: Anxiety Isosorbide Mononitrate [Isosorbide Mononitrate ER] 30 mg PO DAILY Torsemide [Demadex] 20 mg PO DAILY Apixaban [Eliquis] 5 mg PO BID Ferrous Sulfate [Feosol] 325 mg PO DAILY Insulin Aspart (Niacinamide) [Fiasp 100 Unit/ml Flextouch] See Protocol SQ DIRECTED PRN PRN Reason: elevated blood sugar Aspirin 325 mg PO DAILY metFORMIN HCL [Glucophage] 850 mg PO QAM Metoprolol Tartrate [Lopressor] 50 mg PO BID lisinopriL [Zestril] 2.5 mg PO DAILY Digoxin [Lanoxin] 125 mcg PO Q48H Atorvastatin [Lipitor] 20 mg PO DAILY Levothyroxine Sodium [Synthroid] 75 mcg PO DAILY Pantoprazole Sodium [Protonix] 40 mg PO DAILY Multivit-Min/Iron/Folic/Lutein [Centrum Silver Women Tablet] 1 each PO DAILY metFORMIN HCL [Glucophage] 425 mg PO AC-SUPPER Magnesium Oxide 400 mg PO QID Discharge Medication List ALPRAZolam [Xanax] 0.5 tab PO Q8HR PRN 01/02/21 [History] Apixaban [Eliquis] 5 mg PO BID 01/02/21 [History] Aspirin 325 mg PO DAILY 01/02/21 [History] Atorvastatin [Lipitor] 20 mg PO DAILY 01/02/21 [History] Cyanocobalamin [Vitamin B-12] 500 mcg PO DAILY 01/02/21 [History] Digoxin [Lanoxin] 125 mcg PO Q48H 01/02/21 [History] Isosorbide Mononitrate [Isosorbide Mononitrate ER] 30 mg PO DAILY 01/02/21 [History] Levothyroxine Sodium [Synthroid] 75 mcg PO DAILY 01/02/21 [History] Metoprolol Tartrate [Lopressor] 50 mg PO BID 01/02/21 [History] Multivit-Min/Iron/Folic/Lutein [Centrum Silver Women Tablet] 1 each PO DAILY 01/02/21 [History] Pantoprazole Sodium [Protonix] 40 mg PO DAILY 01/02/21 [History] Repaglinide [Prandin] 2 mg PO AC-BID 01/02/21 [History] Torsemide [Demadex] 20 mg PO DAILY 01/02/21 [History] lisinopriL [Zestril] 2.5 mg PO DAILY 01/02/21 [History] metFORMIN HCL [Glucophage] 850 mg PO QAM 01/02/21 [History] Ferrous Sulfate [Feosol] 325 mg PO DAILY 01/19/21 [History] metFORMIN HCL [Glucophage] 425 mg PO AC-SUPPER 01/19/21 [History] Insulin Aspart (Niacinamide) [Fiasp 100 Unit/ml Flextouch] See Protocol SQ DIRECTED PRN 01/22/21 [History] Magnesium Oxide 400 mg PO QID 01/23/21 [History] Discharge Disposition: - Preliminary Cause of Preliminary Cause of : metabolic acidosis, multisystem organ failure
--- NOTE | 2021-02-21 09:19 | CDI ---
Documentation Clarification Form Date: 02/21/2021 09:10:57 AM From: Teressa Tafoya CCS, CCDS Admit Date: 01/24/2021 06:10:00 AM Patient Name: Fatimah Currie Visit Number: [id number] Discharge Date: 01/24/2021 09:20:00 PM ATTENTION: The Clinical Documentation Specialists (CDI) and [facility] Coding Staff appreciate your assistance in clarifying documentation. Please respond to the clarification below the line at the bottom and electronically sign. The CDI & [facility] Coding staff will review the response and follow-up if needed. Please note: Queries are made part of the Legal Health Record. If you have any questions, please contact the author of this message via ITS. Dr. Juarez Gerber: Chronic Anemia is documented in the 01/24 Discharge Summary. The patient developed bright red blood from the posterior aspect of the heart status post MVR, bleeding was controlled with large pieces of felt strip patches and TachoSil patches per the OR report. Additional specificity regarding the type and acuity of anemia is requested. History/Risk Factors: Mitral Valve Stenosis, CAD w/previous VA & PCI, Hypertension, Hyperlipidemia, COPD, IDDM II, GERD, CVA, Former smoker. Clinical indicators: Presented for elective CABG x1 & MVR on 01/24. Hemoglobin 01/24: 9.1 Hematocrit 01/24: 28.2 (Patient shortly after surgery, no other labs for comparison) Treatment 01/24: Transfused 1 unit Platelets, 2 units FFP, 4 units PRBCs Please clarify the type and acuity of anemia: [ ] Acute blood loss anemia [ X ] Acute on chronic blood loss anemia [ ] Chronic blood loss anemia [ ] Iron deficiency anemia [ ] Hemolytic anemia [ ] Unable to determine [ ] Other, please specify (Template Last Revised: October 2020) MTDD
--- NOTE | 2021-02-21 09:27 | CDI ---
Documentation Clarification Form Date: 02/21/2021 09:19:33 AM From: Teressa Tafoya CCS, CCDS Admit Date: 01/24/2021 06:10:00 AM Patient Name: Fatimah Currie Visit Number: [id number] Discharge Date: 01/24/2021 09:20:00 PM ATTENTION: The Clinical Documentation Specialists (CDI) and [facility] Coding Staff appreciate your assistance in clarifying documentation. Please respond to the clarification below the line at the bottom and electronically sign. The CDI & [facility] Coding staff will review the response and follow-up if needed. Please note: Queries are made part of the Legal Health Record. If you have any questions, please contact the author of this message via ITS. Dr. Juarez Gerber: The patient developed bleeding requiring repair intra-operatively status post MVR w/intra-operative revision and CABG x1 and received Vasopressors and 7 units blood. Additional clarification regarding a related diagnoses is requested. History/Risk Factors: Mitral Valve Stenosis, CAD w/previous VA & PCI, Hypertension, Hyperlipidemia, COPD, IDDM II, GERD, CVA, Former smoker. Clinical indicators: Presented for elective CABG x1 & MVR on 01/24. 01/24 Preop VS: T 99.0, P 59, R 16 - 24, BP 163/79, PO 94 RA 01/24 Postop VS: T P 80, R 16, Arterial BP 72/28, PO 64 (intubated from surgery) Hemoglobin 01/24: 9.1 Hematocrit 01/24: 28.2 (Patient shortly after surgery, no other labs for comparison) Treatment 01/24: Transfused 1 unit Platelets, 2 units FFP, 4 units PRBCs, IV Phenylephrine in NaCl, IV Papaverine in Na Cl, IV Levophed, IV Epinephrine, IV Dextrose/Water w/Na Bicarb, IV Tylenol, IV Albumin. Please clarify if the following was present: [ ] Hypovolemic Shock [X ] Cardiogenic Shock [ ] Other, please specify [ ] Unable to determine (Template Last Revised: November 2020) MTDD
== END 2021-01-24 21:20 | disposition expired | DRG 220 ==
LOC: 2ORMAIN 06:10 → 2SICU 17:53
PROVIDERS: ADMIT Thoracic Surgery (Cardiothoracic Vascular Surgery); ATTEND Thoracic Surgery (Cardiothoracic Vascular Surgery)
PROC: 5A02210 Assistance with Cardiac Output using Balloon Pump, Continuous (ICD-10-PCS; principal; 2021-01-24 08:30)
PROC: 02P Heart and Great Vessels, Removal (ICD-10-PCS; principal; 2021-01-24 08:30)
PROC: 02U Heart and Great Vessels, Supplement (ICD-10-PCS; principal; 2021-01-24 08:30)
PROC: 3E033XZ Introduction of Vasopressor into Peripheral Vein, Percutaneous Approach (ICD-10-PCS; principal; 2021-01-24 08:30)
PROC: 5A1221Z Performance of Cardiac Output, Continuous (ICD-10-PCS; principal; 2021-01-24 08:30)
PROC: 0W380ZZ Control Bleeding in Chest Wall, Open Approach (ICD-10-PCS; principal; 2021-01-24 08:30)
PROC: B24BZZ4 Ultrasonography of Heart with Aorta, Transesophageal (ICD-10-PCS; principal; 2021-01-24 08:30)
PROC: 021009W Bypass Coronary Artery, One Artery from Aorta with Autologous Venous Tissue, Open Approach (ICD-10-PCS; principal; 2021-01-24 08:30)
PROC: 30243K1 Transfusion of Nonautologous Frozen Plasma into Central Vein, Percutaneous Approach (ICD-10-PCS; principal; 2021-01-24 08:30)
PROC: 06BP4ZZ Excision of Right Saphenous Vein, Percutaneous Endoscopic Approach (ICD-10-PCS; principal; 2021-01-24 08:30)
PROC: 30243N1 Transfusion of Nonautologous Red Blood Cells into Central Vein, Percutaneous Approach (ICD-10-PCS; principal; 2021-01-24 08:30)
PROC: 30243R1 Transfusion of Nonautologous Platelets into Central Vein, Percutaneous Approach (ICD-10-PCS; principal; 2021-01-24 08:30)
PROC: 02L70CK Occlusion of Left Atrial Appendage with Extraluminal Device, Open Approach (ICD-10-PCS; principal; 2021-01-24 08:30)
PROC: 02RG08Z Replacement of Mitral Valve with Zooplastic Tissue, Open Approach (ICD-10-PCS; principal; 2021-01-24 08:30)
DX: I05.2 Rheumatic mitral stenosis with insufficiency (principal); I69.359 Hemiplegia and hemiparesis following cerebral infarction affecting unspecified side; I48.20 Chronic atrial fibrillation, unspecified; E87.2 Acidosis; I97.418 Intraoperative hemorrhage and hematoma of a circulatory system organ or structure complicating other circulatory system procedure; D62 Acute posthemorrhagic anemia; R57.0 Cardiogenic shock; I25.10 Atherosclerotic heart disease of native coronary artery without angina pectoris; J44.9 Chronic obstructive pulmonary disease, unspecified; E11.9 Type 2 diabetes mellitus without complications; Z66 Do not resuscitate; Z51.5 Encounter for palliative care; Z20.822 Contact with and (suspected) exposure to COVID-19; I10 Essential (primary) hypertension; E78.5 Hyperlipidemia, unspecified; K21.9 Gastro-esophageal reflux disease without esophagitis; I25.2 Old myocardial infarction; Z79.01 Long term (current) use of anticoagulants; Z79.82 Long term (current) use of aspirin; Z79.890 Hormone replacement therapy; Z79.4 Long term (current) use of insulin; Z79.899 Other long term (current) drug therapy; Z87.891 Personal history of nicotine dependence; Z95.5 Presence of coronary angioplasty implant and graft; Z88.0 Allergy status to penicillin; Y83.2 Surgical operation with anastomosis, bypass or graft as the cause of abnormal reaction of the patient, or of later complication, without mention of misadventure at the time of the procedure; Y92.234 Operating room of hospital as the place of occurrence of the external cause; Z88.1 Allergy status to other antibiotic agents; Z88.5 Allergy status to narcotic agent; Z88.8 Allergy status to other drugs, medicaments and biological substances; Z82.49 Family history of ischemic heart disease and other diseases of the circulatory system
CPT/HCPCS: 36430; 80053; 80162; 82330; 82805; 83735; 85025; 85027; 85520; 85610; 85730; 86850; 86891; 86900; 86901; 86920; 87635; 88305; 88311